=== PATIENT | male | born 1950 | race Caucasian/White ===

== ENCOUNTER 2020-09-08 13:32 | Emergency (ER) | payer OTHER, MEDICARE, SELFPAY ==
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
[2020-09-08 13:34] VITALS: BP 125/87; PULSE 97; RESP 20; TEMP 35.8; O2SAT 98
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
[2020-09-08 15:35] VITALS: BP 160/93; PULSE 87; RESP 16; O2SAT 98
== END 2020-09-08 15:25 | disposition home or self-care (01) ==
PROVIDERS: Emergency Provider Emergency Medicine; PCP Internal Medicine
DX: M54.5 Low back pain (principal); I10 Essential (primary) hypertension; V29.40XA Motorcycle driver injured in collision with unspecified motor vehicles in traffic accident, initial encounter
CPT/HCPCS: 72131; 99284